=== PATIENT | female | born 1980 | race Caucasian/White ===

== ENCOUNTER 2019-03-15 17:59 | Emergency (ER) | payer OTHER ==
[2019-03-15] MEDS ORDERED: Tetracaine 0.5% 2 ML Bottle ONE (18:20)
[2019-03-15] MEDS ORDERED: Tetracaine 0.5% Ophth Soln 15 ML Bottle EYELF ONE (18:29)
[2019-03-15] MEDS ORDERED: Ciprofloxacin 0.3% Ophth Soln 2.5 ML Bottle ONE (18:40)
--- NOTE | 2019-03-15 19:40 | EDM.PDOC ---
ED HPI GENERAL MEDICAL PROBLEM - General Chief Complaint: Eye Problems Stated Complaint: SOMETHING IN EYE Time Seen by Provider: 03/15/19 18:27 Source of Information: Reports: Patient History Limitations: Reports: No Limitations - History of Present Illness INITIAL COMMENTS - FREE TEXT/NARRATIVE: According to patient she claims she was driving with her windows down and she felt some thing hit in her left eye, and she immediate felt itchy and rubbed her eye. She came into town and looked at her eye in a mirror and noted that the eye was swollen and there was bleeding in the eye. hence she came into the emergency room for checkup. She claims she has decreased vision in the left eye , but no blurry vision. No halo around the lights. No eye pain or photophobia. Onset: Today Onset Date: 03/15/19 Duration: Resolved Prior to Arrival Location: Reports: Other (left eye) Severity: Mild Improves with: Reports: None Worsens with: Reports: None Associated Symptoms: Denies: Confusion, Chest Pain, Cough, Diaphoresis, Fever/ Chills, Headaches, Nausea/Vomiting, Rash, Seizure, Shortness of Breath, Syncope , Weakness Left Eye Pain Score (Numeric/FACES): 8 - Related Data Allergies Allergy/AdvReac Type Severity Reaction Status Date / Time No Known Allergies Allergy Verified 03/15/19 18:09 Home Meds: Home Meds Anastrozole [Arimidex] 1 mg PO QPM 03/15/19 [History] Calcium Carbonate [Calcium] 600 mg PO BID 03/15/19 [History] Cholecalciferol (Vitamin D3) [Vitamin D3] 1,000 unit PO DAILY 03/15/19 [History] Labetalol HCl [Labetalol] 200 mg PO BID 03/15/19 [History] PNV95/Ferrous Fumarate/FA [ Tablet] 1 each PO DAILY 03/15/19 [History] Zoledronic Acid [Zometa] 4 mg IV ASDIRECTED 03/15/19 [History] ED ROS GENERAL - Review of Systems Review Of Systems: See Below Constitutional: Denies: Fever, Chills HEENT: Reports: Eye Pain. Denies: Ear Pain, Rhinitis, Throat Pain Respiratory: Denies: Shortness of Breath, Pleuritic Chest Pain, Cough, Sputum Cardiovascular: Denies: Chest Pain, Lightheadedness GI/Abdominal: Denies: Abdominal Pain, Nausea, Vomiting : Denies: Dysuria, Frequency Musculoskeletal: Denies: Joint Pain Skin: Denies: Bruising, Pruritis, Rash ED EXAM GENERAL W FULL EYE - Physical Exam Exam: See Below Exam Limited By: No Limitations General Appearance: Alert, WD/WN, No Apparent Distress Eye Exam: Left Eye: Conjunctival Injection (there is a small subconjuncitval bleed over the lateral aspect of the eye ball.), Bilateral Eye: EOMI, PERRL Visual Acuity (R) 20/: 25 Visual Acuity (L) 20/: 40 Eyelids: Left: Edema Conjunctiva & Sclera: Left: Injected, Subconjuctival Hemorrhage Cornea Exam: Right: Normal Appearance Extraocular Movements: Bilateral: Intact Pupillary Size: Bilateral: 3 mm Pupillary Reaction: Bilateral: Brisk Anterior Chamber: Bilateral: Normal Appearance Ears: Normal External Exam, Normal Canal, Hearing Grossly Normal, Normal TMs Nose: Normal Inspection, Normal Mucosa, No Blood Throat/Mouth: Normal Inspection, Normal Lips, Normal Teeth, Normal Gums, Normal Oropharynx, Normal Voice, No Airway Compromise Head: Atraumatic, Normocephalic Neck: Normal Inspection, Supple, Non-Tender, Full Range of Motion Respiratory/Chest: No Respiratory Distress, Lungs Clear, Normal Breath Sounds, No Accessory Muscle Use, Chest Non-Tender Cardiovascular: Normal Peripheral Pulses, Regular Rate, Rhythm, No Edema, No Gallop, No JVD, No Murmur, No Rub Course - Vital Signs Text/Narrative:: Pt reassured that she has developed a traumatic subconjunctival hemorrhage of the left eye. There is some conjunctival injection and left eye lid swelling from rubbing The eye. Cornea appears normal. I have started her on cipro eye drops 2 drops every 2 hrs until bedtime and 2 drop every 4 hrs for next 4 days. Avoid rubbing the eye. The bleed in the left eye might increase a little more before resolving. Subconjunctival bleed might take upto 2 wks to resolve. Followup if there is severe eye pain, halo around the lights or if blurry vision develops. Last Recorded V/S: Last Vital Signs Temp 97.3 F 03/15/19 18:19 Pulse 61 03/15/19 18:19 Resp 16 03/15/19 18:19 BP 140/83 03/15/19 18:19 Pulse Ox 100 03/15/19 18:19 - Orders/Labs/Meds Meds: Medications Discontinued Medications Generic Name Dose Route Start Last Admin Trade Name Ijeoma PRN Reason Stop Dose Admin Tetracaine 2 ml 03/15/19 18:29 03/15/19 18:29 Tetracaine 0.5% Ophth Soln EYELF 03/15/19 18:30 2 ml ASDIRECTED ONE Administration Departure - Departure Time of Disposition: 17:00 Disposition: Home, Self-Care 01 Condition: Fair Clinical Impression: Subconjunctival bleed - Discharge Information *PRESCRIPTION DRUG MONITORING PROGRAM REVIEWED*: Not Applicable *COPY OF PRESCRIPTION DRUG MONITORING REPORT IN PATIENT ADITI: Not Applicable Instructions: Ciprofloxacin eye solution Forms: ED Department Discharge Additional Instructions: Tonight, take 2 drops to left eye every 4 hours until you go to bed. In the morning use Cipro eye drops-2 drops every fours while awake. Use Cipro drops for 5 days. Clean eye in the morning with clean tissue from inside to outside. The redness will increase in eye, this is normal. Will take 2 weeks to get better. Do not rub the eye. - Problem List & Annotations (1) Subconjunctival bleed SNOMED Code(s): 98896962 Code(s): H11.30 - CONJUNCTIVAL HEMORRHAGE, UNSPECIFIED EYE Status: Acute - Problem List Review Problem List Initiated/Reviewed/Updated: Yes - Assessment/Plan Assessment:: Left subconjunctival bleed Plan: Pt reassured that she has developed a traumatic subconjunctival hemorrhage of the left eye. There is some conjunctival injection and left eye lid swelling from rubbing The eye. Cornea appears normal. I have started her on cipro eye drops 2 drops every 2 hrs until bedtime and 2 drop every 4 hrs for next 4 days. Avoid rubbing the eye. The bleed in the left eye might increase a little more before resolving. Subconjunctival bleed might take upto 2 wks to resolve. Followup if there is severe eye pain, halo around the lights or if blurry vision develops.
== END 2019-03-15 18:44 | disposition home or self-care (01) ==
LOC: LB.ED 17:59
DX: H11.32 Conjunctival hemorrhage, left eye (principal)
CPT/HCPCS: 99283; A9270